=== PATIENT | male | born 1985 | race Caucasian/White ===

== ENCOUNTER 2018-12-12 21:00 | Emergency (ER) | payer MEDICAID ==
--- NOTE | 2018-12-12 21:40 | XRAY Report ---
Reason: pain s/p dog bite Procedure Date: 12/12/2018 Accession Number: [id number] / [id number] Procedure: XR - Hand 3 View RT CPT Code: FULL RESULT: EXAM: RIGHT HAND RADIOGRAPHY EXAM DATE: 12/12/2018 09:20 PM. CLINICAL HISTORY: Pain s/p dog bite. COMPARISON: HAND 3 VIEW LT 07/02/2016 5:33 PM. TECHNIQUE: 3 views. FINDINGS: Bones: Normal. No fractures or bone lesions. Joints: Normal. No subluxations. Soft Tissues: Normal. No soft tissue swelling. No radiopaque foreign bodies are seen in the soft tissues. IMPRESSION: Normal hand radiography. RADIA
[2018-12-12] MEDS ORDERED: BACITRACIN OINT TOP STA (22:32)
[2018-12-12] MEDS ORDERED: AMOX/CLAV 875 MG/125 MG TABLET PO STA (22:32)
[2018-12-12] MEDS ORDERED: HYDROcod/ACETAM 5/325 MG TABLET PO STA (22:36)
--- NOTE | 2018-12-12 22:37 | ED Physician Documentation ---
PD HPI ANIMAL BITE - Stated complaint Stated Complaint: DOG BITE RT HAND - Chief complaint Chief Complaint: Wound - History obtained from History obtained from: Patient, Family - History of Present Illness Location of injury(ies): Right hand Details of the event: Dog, Immunized Timing - onset: How many minutes ago (45) Timing - duration: Minutes (45) Timing - details: Abrupt onset Pain level max: 7 Pain level now: 6 Improved by: Rest, Ice, Immobilization Worsened by: Moving, Palpating Associated symptoms: Swelling. No: Weakness, Numbness, Tingling Contributing factors: No: Immunocompromised, Asplenic, Anticoagulated, Un/under immunized, Work related Recently seen: Not recently seen Review of Systems Constitutional: denies: Fever GI: denies: Nausea, Vomiting, Diarrhea Skin: denies: Rash Musculoskeletal: denies: Neck pain PD PAST MEDICAL HISTORY - Past Medical History Past Medical History: Yes - Past Surgical History Past Surgical History: No - Present Medications Home Medications: Ambulatory Orders Medication Instructions Recorded Confirmed Amox/Clav 875/125 [Augmentin] 1 each PO Q12H #20 tablet 12/12/18 Hydrocodone/Acetaminophen 1 - 2 each PO Q6H PRN #10 tablet 12/12/18 [Hydrocodon-Acetaminophen 5-325] - Allergies Allergies/Adverse Reactions: Allergies Allergy/AdvReac Type Severity Reaction Status Date / Time No Known Drug Allergies Allergy Verified 12/12/18 21:08 - Social History Does the pt smoke?: Yes Smoking Status: Current every day smoker Does the pt drink ETOH?: Yes Does the pt have substance abuse?: No - Immunizations Immunizations are current?: Yes PD ED PE NORMAL - Vitals Vital signs reviewed: Yes - General General: Alert and oriented X 3, No acute distress - Neck Neck: Supple, no meningeal sign - Cardiac Cardiac: RRR - Respiratory Respiratory: No respiratory distress, Clear bilaterally - Derm Derm: Warm and dry - Extremities Extremities: Other (Multiple abrasions and puncture wounds over the right hand.) - Neuro Neuro: Alert and oriented X 3 Results - Vitals Vitals: Vital Signs - 24 hr 12/12/18 12/12/18 21:02 22:58 Temperature 37.1 C 36.9 C Heart Rate 93 70 Respiratory 19 16 Rate Blood Pressure 143/83 H 129/83 H O2 Saturation 96 96 Oxygen O2 Source Room air PD MEDICAL DECISION MAKING - ED course Complexity details: considered differential, d/w patient ED course: Wounds were cleansed and bandaged. Nothing is suturable. No evidence of bony injury. Will place on antibiotics and pain medication for home. Warnings of infection and instructions on wound care given at bedside. Also counseled on how to minimize scarring. Patient counseled regarding signs and symptoms for which I believe and urgent re-evaluation would be necessary. Patient with good understanding of and agreement to plan and is comfortable going home at this time This document was made in part using voice recognition software. While efforts are made to proofread this document, sound alike and grammatical errors may occur. Departure - Departure Disposition: Home, Self Care Clinical Impression: Animal bite with open wound Condition: Good Instructions: ED Bite Animal General Follow-Up: your,doctor in 3-5 days for wound check [Other] Prescriptions: Amox/Clav 875/125 [Augmentin] 1 each PO Q12H #20 tablet Hydrocodone/Acetaminophen [Hydrocodon-Acetaminophen 5-325] 1 - 2 each PO Q6H PRN #10 tablet PRN Reason: pain Comments: Take all antibiotics until gone. Return if you worsen. Follow-up with your doctor for a wound check in 3 to 5 days. [address] not drink alcohol or drive while on narcotic pain medicine. Note that many narcotic pain relievers also contain tylenol/acetaminophen. Please ensure that your total dose of acetaminophen from all sources does not exceed 3 grams (3000mg) per day. You may constipated on this medication, take a stool softener such as "Colace" twice a day while you are on it. Also recommend a deio-vjw-wyyuwbs laxative such as senna or MiraLAX any day that you do not have a bowel movement. If you received narcotic pain medication in the emergency department, do not drive or operate machinery for the next 24 hours. Discharge Date/Time: 12/12/18 23:00
[2018-12-12 23:00] VITALS: BP 129/83
== END 2018-12-12 23:00 | disposition home or self-care (01) ==
LOC: ED 21:00
DX: S61.451A Open bite of right hand, initial encounter (principal); W54.0XXA Bitten by dog, initial encounter; Y93.89 Activity, other specified; F17.200 Nicotine dependence, unspecified, uncomplicated
CPT/HCPCS: 73130; 99283; A9270

== ENCOUNTER 2019-06-22 16:18 | Emergency (ER) | payer MEDICAID ==
[2019-06-22 16:59] VITALS: BP 151/84
--- NOTE | 2019-06-22 17:38 | XRAY Report ---
Reason: nail in thumb Procedure Date: 06/22/2019 Accession Number: [id number] / [id number] Procedure: XR - Hand 3 View LT CPT Code: Final Report FULL RESULT: EXAM: LEFT HAND RADIOGRAPHY EXAM DATE: 06/22/2019 05:14 PM. CLINICAL HISTORY: Nail in thumb. COMPARISON: HAND 3 VIEW LT 07/02/2016 5:33 PM. TECHNIQUE: 3 views. FINDINGS: Bones: No definite fracture or other bone lesion. Joints: Normal. No subluxations. Soft Tissues: Large metallic foreign body projects along volar surface of first proximal phalangeal base. IMPRESSION: Foreign body. RADIA
[2019-06-22] MEDS ORDERED: BUFFERED LIDOCAINE 10 ML SYRINGE SUBQ STA (17:40)
--- NOTE | 2019-06-22 17:46 | ED Physician Documentation ---
PD HPI UPPER EXT INJURY - Stated complaint Stated Complaint: LT THUMB INJ - NAIL ALL THE WAY THROUGH - Chief complaint Chief Complaint: Ext Problem - History obtained from History obtained from: Patient - History of Present Illness Location: Left (Right-handed gentleman who is up-to-date on tetanus accidentally drove a nail into his left thumb while working today.) Review of Systems Constitutional: reports: Reviewed and negative Ears: reports: Reviewed and negative Nose: reports: Reviewed and negative PD PAST MEDICAL HISTORY - Past Surgical History Past Surgical History: No - Present Medications Home Medications: Ambulatory Orders Medication Instructions Recorded Confirmed No Known Home Medications 06/22/19 06/22/19 - Allergies Allergies/Adverse Reactions: Allergies Allergy/AdvReac Type Severity Reaction Status Date / Time No Known Drug Allergies Allergy Verified 12/12/18 21:08 - Social History Does the pt smoke?: Yes Smoking Status: Current every day smoker Does the pt drink ETOH?: Yes Does the pt have substance abuse?: No - Immunizations Immunizations are current?: Yes PD ED PE NORMAL - Vitals Vital signs reviewed: Yes - General General: Alert and oriented X 3, No acute distress - Extremities Extremities: Other (There is a through and through nail through the proximal phalangeal part of the left 6 thumb, normal sensation at both sides of the tip.) - Neuro Neuro: Alert and oriented X 3, Normal speech Results - Vitals Vitals: Vital Signs - 24 hr 06/22/19 16:58 Temperature 37.1 C Heart Rate 82 Respiratory 20 Rate Blood Pressure 151/84 H O2 Saturation 98 Oxygen O2 Source Room air - Rads (name of study) Hand XR Radiology: EMP read contemporaneously (No obvious bony injury) Procedures - General procedure General procedure: After verbal informed consent a digital block of the left thumb was done with buffered lidocaine in standard fashion. After excellent anesthesia of the nail was easily removed, it was irrigated and dressed. Departure - Departure Disposition: 01 Home, Self Care Clinical Impression: Foreign body finger Condition: Good Record reviewed to determine appropriate education?: Yes Instructions: ED Foreign Body Soft Tissue Removed Comments: Keep the current dressing on tonight, return for uncontrolled pains or evidence of infection such as redness, swelling, drainage or fever. Your blood pressure was elevated today on check into the emergency department. This does not mean that you have hypertension, it is a common phenomenon to come to the emergency department and have elevated blood pressure. I recommend that you see your primary care physician within the week to have it rechecked when you are feeling better.
== END 2019-06-22 18:03 | disposition home or self-care (01) ==
LOC: ED 16:18
DX: S61.042A Puncture wound with foreign body of left thumb without damage to nail, initial encounter (principal); W45.0XXA Nail entering through skin, initial encounter; R03.0 Elevated blood-pressure reading, without diagnosis of hypertension; F17.200 Nicotine dependence, unspecified, uncomplicated
CPT/HCPCS: 11730